=== PATIENT | male | born 1960 | race Caucasian/White ===

== ENCOUNTER → 2020-06-19 | Outpatient (CLI) | payer OTHER ==
[~2020-06-19] MED LIST: ALEVE220 MG PO; AMLODIPINE BESY10 MG PO; COZAAR100 MG PO; FORTAMET500 MG PO; GLUCOPHAGE500 MG PO; NORCO 10-325 T1 EACH PO; OMEPRAZOLE 20 M20 M1 PO; ULTRAM50 MG PO
== END ==
LOC: SJCVCIMAG 11:30
PROVIDERS: ATTEND Internal Medicine
DX: I08.1 Rheumatic disorders of both mitral and tricuspid valves (principal); I11.9 Hypertensive heart disease without heart failure; E11.9 Type 2 diabetes mellitus without complications

== ENCOUNTER → 2020-06-20 | Outpatient (CLI) | payer OTHER | LOC: NUC 08:57 | PROVIDERS: ATTEND Internal Medicine | DX: R07.9 Chest pain, unspecified (principal); I10 Essential (primary) hypertension; E11.9 Type 2 diabetes mellitus without complications; E78.5 Hyperlipidemia, unspecified ==

== ENCOUNTER → 2021-04-02 | Outpatient (CLI) | payer OTHER ==
[~2021-04-02] VITALS: Ht 167.6 cm; Wt 72.6 kg
[~2021-04-02] MED LIST changes: +ACTOS 45 MG45 M1 PO; +DESYREL150 MG PO; +ELIQUIS5 MG PO; +GABAPENTIN600 M1 PO; +PRAVACHOL40 MG PO
[2021-04-02 12:48] VITALS: BP 135/73
[2021-04-02 13:18] LABS: HEMATOCRIT 39.3 % (42.0-52.0); HEMOGLOBIN 12.9 gm/dL (14.0-18.0); MCV 91.1 fL (80.0-100.0); RBC 4.31 mil/uL (4.50-6.00); RDW 14.7 % (10.5-14.5); WBC 12.2 thou/uL (4.0-11.0)
[2021-04-02 13:24] LABS: CALCIUM 9.3 mg/dL (8.5-10.1); CREATININE 1.2 mg/dL (0.7-1.3); POTASSIUM 3.8 mmol/L (3.5-5.1)
--- NOTE | 2021-04-03 07:25 | EKG ---
[address] [place] [address] ELECTROCARDIOGRAM REPORT Name: OPAL BESTARJUN Joshua [id number] Admission: 04/02/21 Attend Phys: Tres Padilla Discharge: Date of : 60 Report #: [id number] [facility] Test Date: 2021-04-02 Test Time: 12:54:13 Pat Name: TEA BEST Department: Room: Gender: M Die Cast Operator: HEIKE : 1960 Requested By: Tres Padilla Order Number: [id number] MD: Reen Segura Measurements Intervals [place] Rate: 56 P: 27 [place]: 140 QRS: 15 QRSD: 88 T: 6 QT: 584 QTc: 564 Interpretive Statements Sinus rhythm Borderline T wave abnormalities Prolonged QT interval Compared to ECG 03/10/2001 06:49:41 T-wave abnormality now present Possible ischemia no longer present Electronically Signed On 04-03-2021 7:24:47 CDT by Rene Segura [email or web address] <ELECTRONICALLY SIGNED> By: Rene Segura MD, [facility] 04/03/21 0724 1254 1254 Rene Segura MD, FAC /EPI
--- NOTE | 2021-04-14 12:08 | CATHLAB ---
[facility] [place] [address] INVASIVE PROCEDURE REPORT Name: TEA BEST Room #: REG ANGELA Iza#: [id number] Admission: 04/02/21 Attend Phys: Tres Padilla Discharge: Date of : 60 Report #: [id number] THIS REPORT FOR: cc: Karyn Pruitt MD, Julie MD Lammoglia, Francisco J. MD ~ APPROVED REPORT Study performed: 04/02/2021 13:57:36 Patient Details Patient Status: Out-Patient Room #: The patient is a 61 year-old male Event Personnel Tres Padilla Forestry Supervisor, Garima Angel RTR Monitor, Ibis Reyez RTR Scrub, Jessica Moody RN lightning rod installer Performed Art Access - R femoral artery* Left Heart Cath w/or w/o Coronaries [id number] [facility] Hemostasis with Manual pressure 82718 Initial Mod Sed Same Phys/QHP Gr [id number] Mod Sed Same Phys/QHP Ea [id number], supervision of conscious sedation Procedure Narrative The Right Groin^ was infiltrated with 1% Lidocaine subcutaneous anesthesia. A PINNACLE 4FR Sheath #[id number] sheath was inserted into the RFA^. Coronary angiography was performed using coronary diagnostic catheters. The right coronary system was accessed and visualized with a JR4 catheter. The left coronary system was accessed and visualized with a JL4 catheter. The left ventricle was accessed and visualized with a PIGTAIL catheter. Hemostasis was obtained with manual pressure following sheath removal without any complications. The patient tolerated the procedure well and there were no complications associated with the procedure. There was no hematoma. Intraoperative Conscious Sedation Sedation start time: 14:33 Case end Time: 15:02 Versed 2 mg Fluoro Time: 1.50 minutes [facility] [email or web address] [address] INVASIVE PROCEDURE REPORT Name: TEA BEST Josiane Room #: [facility] [id number] Admission: 04/02/21 Attend Phys: Tres Harrison Discharge: Date of : 60 Report #: [id number] Dose: DAP 2118.20 cGycm2 316 mGy Contrast Type and Amount: Omnipaque 40 ml Coronary Angiography The patient's coronary anatomy is left dominant. Diagnostic Cath Left Main Large-caliber vessel normal origin bifurcates left into descending left circumflex. No high-grade lesions are noted LAD Moderate to large caliber type III vessel coursing anterior to jugular sulcus free of significant high-grade lesions noted. Gives rise to septal diagonal branches of the first septal being small to moderate in caliber without high-grade lesions. The vessel itself continues in the distal third tapers in [place] apex and terminates in the small caliber vessel Diagonal 1 Moderate caliber bifurcating vessel without significant high-grade lesions noted Diagonal 2 Small caliber insignificant vessel Circumflex Large-caliber dominant vessel coursing the AV groove where it sequentially gives rise to 2 small caliber marginal branches along the lateral aspect of the left ventricle. And continues posteriorly in the AV groove curettes a small posterior wall branch and a moderate caliber posterior descending artery. No high-grade lesions are noted OM1 Small caliber vessel without high-grade lesion OM2 Small caliber vessel without high-grade lesions L PDA Moderate caliber bifurcating vessel that courses along posterior interventricular sulcus free of high-grade lesions present Right Coronary Small caliber nondominant vessel of normal origin coursing the AV groove to acute marginal gives rise to several branches but free of high-grade disease Left Ventriculography Left Ventriculography was not performed. Hemodynamics The aortic pressure is 155/86 mmHg with a mean of 105 mmHg. The left ventricular pressure is 158/3 mmHg with a mean of mmHg. The left ventricular end diastolic pressure is 22 mmHg. Conclusion 1. Normal coronary artery 2. Normal hemodynamic [facility] [address] [place] [address] INVASIVE PROCEDURE REPORT Name: TEA BEST Room #: REG [facility]#: [id number] Admission: 04/02/21 Attend Phys: Tres Harrison Discharge: Date of : 60 Report #: [id number] Recommendations Cardiac Risk Reduction Program Medical Therapy <ELECTRONICALLY SIGNED> By: Tres Padilla MD 04/14/21 1208 1208 120 Tres Padilla MD /INF
== END | disposition home or self-care (01) ==
LOC: CATH 08:40
PROVIDERS: ATTEND Internal Medicine
DX: R07.9 Chest pain, unspecified (principal); I10 Essential (primary) hypertension; E78.5 Hyperlipidemia, unspecified; E11.40 Type 2 diabetes mellitus with diabetic neuropathy, unspecified; K21.9 Gastro-esophageal reflux disease without esophagitis; Z98.890 Other specified postprocedural states; Z79.899 Other long term (current) drug therapy; Z96.641 Presence of right artificial hip joint; Z20.822 Contact with and (suspected) exposure to COVID-19; Z86.718 Personal history of other venous thrombosis and embolism; Z79.01 Long term (current) use of anticoagulants; Z88.8 Allergy status to other drugs, medicaments and biological substances